=== PATIENT | male | born 1990 ===

== ENCOUNTER 2020-04-22 18:54 | Emergency (ER) | payer SELFPAY ==
[2020-04-22 19:17] VITALS: BP 106/64
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
[2020-04-22] MEDS ORDERED: IBUPROFEN 800 MG TAB ONE (21:21)
[2020-04-22] MEDS ORDERED: IBUPROFEN 800 MG TAB PO ONE (21:22)
== END 2020-04-22 21:42 | disposition home or self-care (01) ==
LOC: EDSEX → ED 18:54
DX: S29.011A Strain of muscle and tendon of front wall of thorax, initial encounter (principal); S16.1XXA Strain of muscle, fascia and tendon at neck level, initial encounter; R68.84 Jaw pain; F17.200 Nicotine dependence, unspecified, uncomplicated; Z79.899 Other long term (current) drug therapy; V49.49XA Driver injured in collision with other motor vehicles in traffic accident, initial encounter; Y93.89 Activity, other specified; Y92.488 Other paved roadways as the place of occurrence of the external cause; Y99.8 Other external cause status
CPT/HCPCS: 70486; 71046